=== PATIENT | female | born 1935 | race Caucasian/White ===

== ENCOUNTER 2017-05-10 20:48 | Emergency (ER) | payer MEDICARE, BC ==
[~2017-05-10] VITALS: Ht 162.6 cm; Wt 77.0 kg
[~2017-05-10 20:48] MED LIST: AMLODIPINE5 MG PO; ASPIRIN LOW DOS81 M2 PO; ATORVASTATIN CA20 MG PO; B-121000 MC1 PO; BRILINTA90 MG PO; CIPROFLOXACN500 MG PO; FLORASTOR250 M1 PO; FUROSEMIDE20 MG PO; FUROSEMIDE80 MG PO; IMODIUM2 MG PO; LASIX 20 MG TAB20 MG PO; LEVOTHYROXIN50 MCG PO; LIPITOR20 M1 PO; LISINOPRIL10 MG PO; LISINOPRIL20 MG PO; METFORMIN500 MG PO; METOPROL TAR25 MG PO; METRONIDAZOL500 MG PO; PANTOPRAZOLE SO40 MG PO; PLAVIX75 MG PO; VITAMIN B-12500 MCG PO
[2017-05-10] MEDS ORDERED: BUMEX1 M1 PO (21:04)
[2017-05-10] MEDS ORDERED: SPIRONOLACTONE25 MG PO (21:04)
[2017-05-10 22:34] LABS: HEMATOCRIT 24.1 % (37.0-47.0); HEMOGLOBIN 7.8 g/dl (12.0-16.0); IMMATURE GRANULOCYTES 0.3 % (0.0-1.0); MEAN CELL VOLUME 90.9 fL CALC (80.0-100.0); MEAN CORPUSCULAR HGB 29.4 pG CALC (26.0-32.0); MEAN CORPUSCULAR HGB CONC 32.4 g/L CALC (32.0-36.0); NEUT# 1.77 thou/uL (2.00-7.15); RED BLOOD COUNT 2.65 mill/uL (4.20-5.60); RED CELL DISTRI WIDTH 14.6 % (11.5-15.5)
[2017-05-10 22:47] LABS: ALBUMIN 3.5 g/dL (3.2-5.0); BILIRUBIN, TOTAL 1.1 mg/dL (0.0-1.4); CALCIUM 8.9 mg/dL (8.4-10.2); CREATININE 1.5 mg/dL (0.5-1.0); POTASSIUM 3.6 mmol/l (3.5-5.1); TOTAL PROTEIN 6.4 g/dL (6.3-8.2)
[2017-05-10 22:51] LABS: INTERNATIONAL NORMALIZED RATIO 1.1 RATIO (0.7-1.3); PROTHROMBIN TIME 12.1 SECONDS (9.0-12.5)
[2017-05-11 03:10] VITALS: BP 140/67
== END 2017-05-11 03:10 ==
LOC: ED 20:48 → ED-I 05-11 → ED 05-11 03:10
PROVIDERS: Emergency Medicine
DX: K92.2 Gastrointestinal hemorrhage, unspecified (principal); D64.9 Anemia, unspecified; N18.3 Chronic kidney disease, stage 3 (moderate); E11.9 Type 2 diabetes mellitus without complications; Z79.84 Long term (current) use of oral hypoglycemic drugs
CPT/HCPCS: J2354; S0164

== ENCOUNTER 2017-10-06 20:46 | Observation (INO) | payer MEDICARE, BC ==
[~2017-10-06] VITALS: Ht 160 cm; Wt 80.0 kg
[~2017-10-06 20:46] MED LIST changes: +BUMEX1 M1 PO; +SPIRONOLACTONE25 MG PO
[2017-10-06] MEDS ORDERED: FERROUS SUL1 XX (21:16)
[2017-10-06] MEDS ORDERED: B-12500 MC2 (21:17)
[2017-10-06 22:17] LABS: HEMATOCRIT 37.1 % (37.0-47.0); HEMOGLOBIN 12.7 g/dl (12.0-16.0); IMMATURE GRANULOCYTES 0.3 % (0.0-1.0); MEAN CELL VOLUME 101.1 fL CALC (80.0-100.0); MEAN CORPUSCULAR HGB 34.6 pG CALC (26.0-32.0); MEAN CORPUSCULAR HGB CONC 34.2 g/L CALC (32.0-36.0); NEUT# 5.98 thou/uL (2.00-7.15); RED BLOOD COUNT 3.67 mill/uL (4.20-5.60); RED CELL DISTRI WIDTH 13.3 % (11.5-15.5)
[2017-10-06 22:18] LABS: URINE BILIRUBIN - DIPSTICK NEGATIVE (NEGATIVE); URINE BLOOD DIPSTICK SMALL (NEGATIVE); URINE COLOR YELLOW; URINE GLUCOSE - DIPSTICK NEGATIVE (NEGATIVE); URINE KETONE NEGATIVE (NEGATIVE); URINE NITRITE - DIPSTICK NEGATIVE (Negative); URINE PH 5.5 (4.5-8.0); URINE PROTEIN - DIPSTICK TRACE mg/dL (NEG-TRACE); URINE SPECIFIC GRAVITY >=1.030; URINE UROBILINOGEN - DIPSTICK 0.2 E.U./dL (0.2)
[2017-10-06 22:19] LABS: URINE LEUK ESTERASE SMALL (NEGATIVE)
[2017-10-06 22:22] LABS: URINE CLARITY TURBID
[2017-10-06 22:26] LABS: URINE BACTERIA RARE hpf; URINE SQUAMOUS EPITHELIAL CELL FEW EPI/hpf (0-FEW)
[2017-10-06 22:39] LABS: ACT PARTIAL THROMBO TIME 27.5 SECONDS (20.0-32.5); INTERNATIONAL NORMALIZED RATIO 1.1 RATIO (0.7-1.3); PROTHROMBIN TIME 12.7 SECONDS (9.0-12.5)
[2017-10-06 22:45] LABS: ALBUMIN 3.8 g/dL (3.2-5.0); BILIRUBIN, TOTAL 2.9 mg/dL (0.0-1.4); CALCIUM 10.1 mg/dL (8.4-10.2); CREATININE 1.3 mg/dL (0.5-1.0); TOTAL PROTEIN 6.7 g/dL (6.3-8.2)
[2017-10-07 01:50] VITALS: BP 118/53
[2017-10-07 07:57] VITALS: BP 121/60
[2017-10-07 11:41] VITALS: BP 122/53
[2017-10-07] MEDS ORDERED: KEFLEX500 MG PO (13:01)
[2017-10-07 15:23] VITALS: BP 143/54
== END 2017-10-07 16:10 | disposition home or self-care (01) ==
LOC: ED 20:46 → ED-I 23:59 → ED 10-07 00:56 → MS2 10-07 00:57
PROVIDERS: Emergency Medicine; ADMIT Internal Medicine; ATTEND Internal Medicine
DX: R10.13 Epigastric pain (principal); R11.0 Nausea; N39.0 Urinary tract infection, site not specified; I12.9 Hypertensive chronic kidney disease with stage 1 through stage 4 chronic kidney disease, or unspecified chronic kidney disease; E11.22 Type 2 diabetes mellitus with diabetic chronic kidney disease; N18.3 Chronic kidney disease, stage 3 (moderate); E03.9 Hypothyroidism, unspecified; K21.9 Gastro-esophageal reflux disease without esophagitis; M19.90 Unspecified osteoarthritis, unspecified site; I25.10 Atherosclerotic heart disease of native coronary artery without angina pectoris; I25.2 Old myocardial infarction; Z95.5 Presence of coronary angioplasty implant and graft; R07.9 Chest pain, unspecified

== ENCOUNTER 2017-10-12 02:23 | Emergency (ER) | payer MEDICARE, BC ==
[~2017-10-12] VITALS: Ht 160 cm; Wt 80.8 kg
[~2017-10-12 02:23] MED LIST changes: +B-12500 MC2; +FERROUS SUL1 XX; +KEFLEX500 MG PO
[2017-10-12] MEDS ORDERED: FERROUS FUM324 MG PO (03:42)
[2017-10-12 03:50] LABS: HEMATOCRIT 34.6 % (37.0-47.0); HEMOGLOBIN 12.5 g/dl (12.0-16.0); IMMATURE GRANULOCYTES 0.3 % (0.0-1.0); MEAN CELL VOLUME 97.5 fL CALC (80.0-100.0); MEAN CORPUSCULAR HGB 35.2 pG CALC (26.0-32.0); MEAN CORPUSCULAR HGB CONC 36.1 g/L CALC (32.0-36.0); NEUT# 5.47 thou/uL (2.00-7.15); RED BLOOD COUNT 3.55 mill/uL (4.20-5.60); RED CELL DISTRI WIDTH 12.8 % (11.5-15.5)
[2017-10-12 03:57] LABS: ALBUMIN 3.4 g/dL (3.2-5.0); BILIRUBIN, TOTAL 3.6 mg/dL (0.0-1.4); CREATININE 1.2 mg/dL (0.5-1.0); POTASSIUM 4.1 mmol/l (3.5-5.1); TOTAL PROTEIN 6.1 g/dL (6.3-8.2)
[2017-10-12 06:38] VITALS: BP 158/72
== END 2017-10-12 06:39 | disposition short-term general hospital (02) ==
LOC: ED 02:23
PROVIDERS: Emergency Medicine
DX: R10.13 Epigastric pain (principal); K85.90 Acute pancreatitis without necrosis or infection, unspecified; K80.10 Calculus of gallbladder with chronic cholecystitis without obstruction; R10.33 Periumbilical pain; R11.2 Nausea with vomiting, unspecified; R50.9 Fever, unspecified; I12.9 Hypertensive chronic kidney disease with stage 1 through stage 4 chronic kidney disease, or unspecified chronic kidney disease; N18.3 Chronic kidney disease, stage 3 (moderate)
CPT/HCPCS: S0164

== ENCOUNTER 2018-07-30 11:32 | Emergency (ER) | payer MEDICARE, BC ==
[~2018-07-30] VITALS: Ht 160 cm; Wt 81.8 kg
[~2018-07-30 11:32] MED LIST changes: +FERROUS FUM324 MG PO
[2018-07-30 11:35] VITALS: BP 198/84
[2018-07-30] MEDS ORDERED: LOSARTAN POT25 MG PO (13:23)
[2018-07-30] MEDS ORDERED: ASPIRIN81 MG PO (13:24)
== END 2018-07-30 13:45 ==
LOC: ED 11:32
DX: S72.142A Displaced intertrochanteric fracture of left femur, initial encounter for closed fracture (principal); I12.9 Hypertensive chronic kidney disease with stage 1 through stage 4 chronic kidney disease, or unspecified chronic kidney disease; E11.22 Type 2 diabetes mellitus with diabetic chronic kidney disease; N18.3 Chronic kidney disease, stage 3 (moderate); E03.9 Hypothyroidism, unspecified; I25.10 Atherosclerotic heart disease of native coronary artery without angina pectoris; W01.0XXA Fall on same level from slipping, tripping and stumbling without subsequent striking against object, initial encounter; Y92.232 Corridor of hospital as the place of occurrence of the external cause; Z95.5 Presence of coronary angioplasty implant and graft

== ENCOUNTER 2018-08-09 08:14 | Inpatient (IN) | payer MEDICARE, BC ==
[~2018-08-09] VITALS: Ht 160 cm; Wt 77.7 kg
[2018-08-09] VITALS (16 sets, daily range): BP systolic 93–119; BP diastolic 41–72
[~2018-08-09 08:14] MED LIST changes: +ASPIRIN81 MG PO; -B-12500 MC2; +B-12500 MC2 PO; +LOSARTAN POT25 MG PO
[2018-08-09 08:59] LABS: HEMATOCRIT 25.8 % (37.0-47.0); HEMOGLOBIN 8.7 g/dl (12.0-16.0); IMMATURE GRANULOCYTES 0.6 % (0.0-5.0); MEAN CELL VOLUME 105.3 fL CALC (80.0-100.0); MEAN CORPUSCULAR HGB 35.5 pG CALC (26.0-32.0); MEAN CORPUSCULAR HGB CONC 33.7 g/L CALC (32.0-36.0); NEUT# 14.14 thou/uL (2.00-7.15); RED BLOOD COUNT 2.45 mill/uL (4.20-5.60); RED CELL DISTRI WIDTH 18.5 % (11.5-15.5)
[2018-08-09 09:17] LABS: ALKALINE PHOSPHATASE 113 u/l (38-126); ANION GAP 12 (6-22 (CALC)); BILIRUBIN, TOTAL 7.3 mg/dL (0.0-1.4); BUN 25 mg/dL (8-23); BUN/CREATININE RATIO 16 (12-20 (CALC)); CARBON DIOXIDE 22 mmol/l (22-30); CHLORIDE 104 mmol/l (95-108); CREATININE 1.6 mg/dL (0.5-1.0); GFR 31 ML/MIN (>=60 (CALC)); GFR FOR AFR.AMER. 37 ML/MIN (>=60 (CALC)); POTASSIUM 4.5 mmol/l (3.5-5.1); SGOT/AST 41 u/l (9-36); SODIUM 133 mmol/l (137-146)
[2018-08-09 09:19] LABS: ALBUMIN 2.7 g/dL (3.2-5.0); TOTAL PROTEIN 5.5 g/dL (6.3-8.2)
[2018-08-09 09:29] LABS: MYOGLOBIN 80 ng/mL (0 - 62)
[2018-08-09 10:02] LABS: URINE BILIRUBIN - DIPSTICK NEGATIVE (NEGATIVE); URINE BLOOD DIPSTICK NEGATIVE (NEGATIVE); URINE GLUCOSE - DIPSTICK NEGATIVE (NEGATIVE); URINE KETONE NEGATIVE (NEGATIVE); URINE LEUK ESTERASE NEGATIVE (NEGATIVE); URINE NITRITE - DIPSTICK NEGATIVE (Negative); URINE PROTEIN - DIPSTICK NEGATIVE (NEG-TRACE); URINE SPECIFIC GRAVITY 1.025
[2018-08-09 10:04] LABS: URINE CLARITY CLEAR; URINE COLOR DK. YELLOW
[2018-08-09] MEDS ORDERED: PROCRIT 1010000 U/ML IJ (10:05)
[2018-08-09] MEDS ORDERED: COLACE100 MG PO (10:08)
[2018-08-10] VITALS (12 sets, daily range): BP systolic 91–154; BP diastolic 43–65
[2018-08-10 05:42] LABS: HEMATOCRIT 22.9 % (37.0-47.0); HEMOGLOBIN 7.7 g/dl (12.0-16.0); IMMATURE GRANULOCYTES 0.3 % (0.0-5.0); MEAN CELL VOLUME 107.5 fL CALC (80.0-100.0); MEAN CORPUSCULAR HGB 36.2 pG CALC (26.0-32.0); MEAN CORPUSCULAR HGB CONC 33.6 g/L CALC (32.0-36.0); NEUT# 9.81 thou/uL (2.00-7.15); RED BLOOD COUNT 2.13 mill/uL (4.20-5.60); RED CELL DISTRI WIDTH 18.6 % (11.5-15.5)
[2018-08-10 06:12] LABS: BILIRUBIN, TOTAL 4.4 mg/dL (0.0-1.4); CREATININE 1.8 mg/dL (0.5-1.0); MAGNESIUM 1.8 mg/dL (1.6-2.3); POTASSIUM 4.3 mmol/l (3.5-5.1); TOTAL PROTEIN 4.4 g/dL (6.3-8.2)
[2018-08-10 06:20] LABS: ALBUMIN 2.1 g/dL (3.2-5.0)
[2018-08-11] VITALS (18 sets, daily range): BP systolic 101–147; BP diastolic 43–67
[2018-08-11 06:37] LABS: HEMATOCRIT 20.5 % (37.0-47.0); IMMATURE GRANULOCYTES 0.8 % (0.0-5.0); MEAN CELL VOLUME 104.6 fL CALC (80.0-100.0); MEAN CORPUSCULAR HGB 35.7 pG CALC (26.0-32.0); MEAN CORPUSCULAR HGB CONC 34.1 g/L CALC (32.0-36.0); NEUT# 8.25 thou/uL (2.00-7.15); RED BLOOD COUNT 1.96 mill/uL (4.20-5.60); RED CELL DISTRI WIDTH 18.6 % (11.5-15.5)
[2018-08-11 06:46] LABS: ALBUMIN 2.2 g/dL (3.2-5.0); BILIRUBIN, TOTAL 3.2 mg/dL (0.0-1.4); CREATININE 1.8 mg/dL (0.5-1.0); POTASSIUM 3.9 mmol/l (3.5-5.1); TOTAL PROTEIN 4.5 g/dL (6.3-8.2)
[2018-08-11 07:30] LABS: MAGNESIUM 1.9 mg/dL (1.6-2.3)
[2018-08-12] VITALS (23 sets, daily range): BP systolic 112–159; BP diastolic 51–70
[2018-08-12 05:12] LABS: HEMATOCRIT 26.4 % (37.0-47.0); HEMOGLOBIN 8.9 g/dl (12.0-16.0); IMMATURE GRANULOCYTES 1.1 % (0.0-5.0); MEAN CELL VOLUME 98.5 fL CALC (80.0-100.0); MEAN CORPUSCULAR HGB 33.2 pG CALC (26.0-32.0); MEAN CORPUSCULAR HGB CONC 33.7 g/L CALC (32.0-36.0); NEUT# 7.32 thou/uL (2.00-7.15); RED BLOOD COUNT 2.68 mill/uL (4.20-5.60); RED CELL DISTRI WIDTH 19.9 % (11.5-15.5)
[2018-08-12 05:42] LABS: ALBUMIN 2.5 g/dL (3.2-5.0); BILIRUBIN, TOTAL 3.4 mg/dL (0.0-1.4); CREATININE 1.7 mg/dL (0.5-1.0); MAGNESIUM 1.8 mg/dL (1.6-2.3); POTASSIUM 3.3 mmol/l (3.5-5.1); TOTAL PROTEIN 4.7 g/dL (6.3-8.2)
[2018-08-13] VITALS (13 sets, daily range): BP systolic 133–169; BP diastolic 59–79
[2018-08-13 04:47] LABS: HEMOGLOBIN 9.4 g/dl (12.0-16.0); IMMATURE GRANULOCYTES 2.6 % (0.0-5.0); MEAN CELL VOLUME 98.6 fL CALC (80.0-100.0); MEAN CORPUSCULAR HGB 33.1 pG CALC (26.0-32.0); MEAN CORPUSCULAR HGB CONC 33.6 g/L CALC (32.0-36.0); NEUT# 4.7 thou/uL (2.00-7.15); RED BLOOD COUNT 2.84 mill/uL (4.20-5.60); RED CELL DISTRI WIDTH 19.8 % (11.5-15.5)
[2018-08-13 05:08] LABS: BILIRUBIN, TOTAL 3.3 mg/dL (0.0-1.4); CREATININE 1.5 mg/dL (0.5-1.0); MAGNESIUM 1.7 mg/dL (1.6-2.3); TOTAL PROTEIN 5.3 g/dL (6.3-8.2)
[2018-08-14] VITALS (18 sets, daily range): BP systolic 118–152; BP diastolic 51–89
[2018-08-14 06:14] LABS: HEMATOCRIT 29.7 % (37.0-47.0); HEMOGLOBIN 10.1 g/dl (12.0-16.0); IMMATURE GRANULOCYTES 5.2 % (0.0-5.0); MEAN CELL VOLUME 99.3 fL CALC (80.0-100.0); MEAN CORPUSCULAR HGB 33.8 pG CALC (26.0-32.0); PLATELET COUNT 95 thou/uL (130-400); RED BLOOD COUNT 2.99 mill/uL (4.20-5.60); RED CELL DISTRI WIDTH 19.4 % (11.5-15.5)
[2018-08-14 06:33] LABS: ALBUMIN 3.1 g/dL (3.2-5.0); CREATININE 1.5 mg/dL (0.5-1.0); POTASSIUM 2.7 mmol/l (3.5-5.1)
[2018-08-14 06:57] LABS: BAND 1 % (0-8); MANUAL DIFFERENTIAL YES
[2018-08-15] VITALS (14 sets, daily range): BP systolic 126–173; BP diastolic 49–78
[2018-08-15 05:34] LABS: HEMATOCRIT 33.9 % (37.0-47.0); HEMOGLOBIN 11.3 g/dl (12.0-16.0); IMMATURE GRANULOCYTES 5.7 % (0.0-5.0); MEAN CELL VOLUME 101.5 fL CALC (80.0-100.0); MEAN CORPUSCULAR HGB 33.8 pG CALC (26.0-32.0); MEAN CORPUSCULAR HGB CONC 33.3 g/L CALC (32.0-36.0); PLATELET COUNT 123 thou/uL (130-400); RED BLOOD COUNT 3.34 mill/uL (4.20-5.60); RED CELL DISTRI WIDTH 20.5 % (11.5-15.5)
[2018-08-15 05:55] LABS: ALBUMIN 3.4 g/dL (3.2-5.0); CREATININE 1.7 mg/dL (0.5-1.0); MAGNESIUM 1.8 mg/dL (1.6-2.3); TOTAL PROTEIN 5.9 g/dL (6.3-8.2)
[2018-08-15 05:59] LABS: BAND 2 % (0-8); MANUAL DIFFERENTIAL YES
[2018-08-15 06:04] LABS: POTASSIUM 3.9 mmol/l (3.5-5.1)
[2018-08-16] VITALS (7 sets, daily range): BP systolic 110–142; BP diastolic 53–85
[2018-08-16 06:22] LABS: HEMATOCRIT 34.2 % (37.0-47.0); HEMOGLOBIN 11.1 g/dl (12.0-16.0); IMMATURE GRANULOCYTES 2.6 % (0.0-5.0); MEAN CELL VOLUME 104.6 fL CALC (80.0-100.0); MEAN CORPUSCULAR HGB 33.9 pG CALC (26.0-32.0); MEAN CORPUSCULAR HGB CONC 32.5 g/L CALC (32.0-36.0); NEUT# 7.42 thou/uL (2.00-7.15); RED BLOOD COUNT 3.27 mill/uL (4.20-5.60); RED CELL DISTRI WIDTH 20.4 % (11.5-15.5)
[2018-08-16 06:39] LABS: ALBUMIN 3.2 g/dL (3.2-5.0); BILIRUBIN, TOTAL 4.7 mg/dL (0.0-1.4); CREATININE 1.7 mg/dL (0.5-1.0); TOTAL PROTEIN 5.6 g/dL (6.3-8.2)
[2018-08-17] VITALS (7 sets, daily range): BP systolic 95–133; BP diastolic 50–82
[2018-08-17 05:11] LABS: HEMOGLOBIN 10.7 g/dl (12.0-16.0); MEAN CELL VOLUME 107.9 fL CALC (80.0-100.0); MEAN CORPUSCULAR HGB CONC 31.5 g/L CALC (32.0-36.0); RED BLOOD COUNT 3.15 mill/uL (4.20-5.60); RED CELL DISTRI WIDTH 20.2 % (11.5-15.5)
[2018-08-17 05:22] LABS: CREATININE 1.4 mg/dL (0.5-1.0); MAGNESIUM 1.9 mg/dL (1.6-2.3); POTASSIUM 3.6 mmol/l (3.5-5.1)
[2018-08-18 04:05] VITALS: BP 120/64
[2018-08-18 06:12] LABS: CREATININE 1.6 mg/dL (0.5-1.0); POTASSIUM 3.1 mmol/l (3.5-5.1)
[2018-08-18 06:54] LABS: HEMATOCRIT 36.2 % (37.0-47.0); HEMOGLOBIN 11.8 g/dl (12.0-16.0); MEAN CELL VOLUME 105.8 fL CALC (80.0-100.0); MEAN CORPUSCULAR HGB 34.5 pG CALC (26.0-32.0); MEAN CORPUSCULAR HGB CONC 32.6 g/L CALC (32.0-36.0); RED BLOOD COUNT 3.42 mill/uL (4.20-5.60); RED CELL DISTRI WIDTH 19.4 % (11.5-15.5)
[2018-08-18 07:50] VITALS: BP 133/58
[2018-08-18 11:24] VITALS: BP 116/70
[2018-08-18 15:44] VITALS: BP 110/50
[2018-08-18 19:30] VITALS: BP 100/50
[2018-08-19] VITALS (7 sets, daily range): BP systolic 110–142; BP diastolic 45–63
[2018-08-19 05:48] LABS: CREATININE 1.6 mg/dL (0.5-1.0); POTASSIUM 3.4 mmol/l (3.5-5.1)
[2018-08-19 05:50] LABS: ALBUMIN 2.5 g/dL (3.2-5.0)
[2018-08-19 12:58] LABS: URINE BILIRUBIN - DIPSTICK NEGATIVE (NEGATIVE); URINE BLOOD DIPSTICK NEGATIVE (NEGATIVE); URINE COLOR YELLOW; URINE GLUCOSE - DIPSTICK NEGATIVE (NEGATIVE); URINE KETONE NEGATIVE (NEGATIVE); URINE LEUK ESTERASE NEGATIVE (Negative); URINE NITRITE - DIPSTICK NEGATIVE (Negative); URINE PROTEIN - DIPSTICK NEGATIVE (NEG-TRACE); URINE SPECIFIC GRAVITY 1.015
[2018-08-19 13:09] LABS: URINE CLARITY CLEAR
[2018-08-20 04:00] VITALS: BP 141/72
[2018-08-20 05:56] LABS: ALBUMIN 2.5 g/dL (3.2-5.0); BUN 60 mg/dL (8-23); CARBON DIOXIDE 32 mmol/l (22-30); CHLORIDE 101 mmol/l (95-108); CREATININE 1.4 mg/dL (0.5-1.0); GFR 36 ML/MIN (>=60 (CALC)); GFR FOR AFR.AMER. 44 ML/MIN (>=60 (CALC)); POTASSIUM 3.5 mmol/l (3.5-5.1); SODIUM 139 mmol/l (137-146)
[2018-08-20 07:51] VITALS: BP 126/56
[2018-08-20 11:34] VITALS: BP 115/56
[2018-08-20 16:08] VITALS: BP 140/70
[2018-08-20 19:00] VITALS: BP 118/65
[2018-08-21 04:30] VITALS: BP 115/56
[2018-08-21 07:39] VITALS: BP 135/52
[2018-08-21 10:42] VITALS: BP 125/60
[2018-08-21 15:44] VITALS: BP 123/56
[2018-08-21 19:00] VITALS: BP 119/61
[2018-08-22 03:58] VITALS: BP 116/62
[2018-08-22 07:31] VITALS: BP 100/55
[2018-08-22 11:14] VITALS: BP 127/62
[2018-08-22] MEDS ORDERED: BUMETANIDE1 MG PO (13:02)
[2018-08-22] MEDS ORDERED: VITAMIN D2000 UNI2 PO (13:03)
[2018-08-22] MEDS ORDERED: LACTULOSE10 GM/15 M PO (13:05)
[2018-08-22 15:24] VITALS: BP 136/61
== END 2018-08-22 17:06 | DRG 291 ==
LOC: ED 08:14 → ED-I 09:28 → ED 09:41 → ICU 09:42 → MS2 08-15 14:35
PROVIDERS: Emergency Medicine; Internal Medicine; Internal Medicine Nephrology; ADMIT Internal Medicine Nephrology; ATTEND Internal Medicine Nephrology
PROC: 0T9B70Z Drainage of Bladder with Drainage Device, Via Natural or Artificial Opening (ICD-10-PCS; 2018-08-09)
PROC: 02HV33Z Insertion of Infusion Device into Superior Vena Cava, Percutaneous Approach (ICD-10-PCS; 2018-08-09)
PROC: 4A02X4A Measurement of Cardiac Electrical Activity, Guidance, External Approach (ICD-10-PCS; 2018-08-09)
PROC: 30233N1 Transfusion of Nonautologous Red Blood Cells into Peripheral Vein, Percutaneous Approach (ICD-10-PCS; principal; 2018-08-11)
PROC: 30233N1 Transfusion of Nonautologous Red Blood Cells into Peripheral Vein, Percutaneous Approach (ICD-10-PCS; 2018-08-11)
DX: I13.0 Hypertensive heart and chronic kidney disease with heart failure and stage 1 through stage 4 chronic kidney disease, or unspecified chronic kidney disease (principal); J18.9 Pneumonia, unspecified organism; J96.01 Acute respiratory failure with hypoxia; G92 Toxic encephalopathy; I50.33 Acute on chronic diastolic (congestive) heart failure; E87.4 Mixed disorder of acid-base balance; N17.9 Acute kidney failure, unspecified; T81.41XA Infection following a procedure, superficial incisional surgical site, initial encounter; E87.1 Hypo-osmolality and hyponatremia; N25.81 Secondary hyperparathyroidism of renal origin; L76.32 Postprocedural hematoma of skin and subcutaneous tissue following other procedure; N39.0 Urinary tract infection, site not specified; E87.3 Alkalosis; E11.22 Type 2 diabetes mellitus with diabetic chronic kidney disease; N18.3 Chronic kidney disease, stage 3 (moderate); E03.9 Hypothyroidism, unspecified; I25.10 Atherosclerotic heart disease of native coronary artery without angina pectoris; E78.5 Hyperlipidemia, unspecified; K21.9 Gastro-esophageal reflux disease without esophagitis; I95.9 Hypotension, unspecified; E87.6 Hypokalemia; D69.6 Thrombocytopenia, unspecified; K59.00 Constipation, unspecified; M19.90 Unspecified osteoarthritis, unspecified site; H91.90 Unspecified hearing loss, unspecified ear; D63.1 Anemia in chronic kidney disease; T42.4X5A Adverse effect of benzodiazepines, initial encounter; B95.62 Methicillin resistant Staphylococcus aureus infection as the cause of diseases classified elsewhere; B96.20 Unspecified Escherichia coli [E. coli] as the cause of diseases classified elsewhere; S72.92XD Unspecified fracture of left femur, subsequent encounter for closed fracture with routine healing; X58.XXXD Exposure to other specified factors, subsequent encounter; Y95 Nosocomial condition; Y83.1 Surgical operation with implant of artificial internal device as the cause of abnormal reaction of the patient, or of later complication, without mention of misadventure at the time of the procedure; Z95.5 Presence of coronary angioplasty implant and graft; Z16.12 Extended spectrum beta lactamase (ESBL) resistance
CPT/HCPCS: J0885; J1650; J2060; J3370; P9016; P9047

== ENCOUNTER 2018-09-16 13:41 | Inpatient (IN) | payer MEDICARE, BC ==
[~2018-09-16] VITALS: Ht 160 cm; Wt 81.6 kg
[~2018-09-16 13:41] MED LIST changes: +BUMETANIDE1 MG PO; +COLACE100 MG PO; +LACTULOSE10 GM/15 M PO; +PROCRIT 1010000 U/ML IJ; +VITAMIN D2000 UNI2 PO
--- NOTE | 2018-09-16 13:55 | NUR ---
PT AWAITING ROOM ASSIGNMENT IN TRIAGE ROOM WITH SALES FACILITATOR.
[2018-09-16] MEDS ORDERED: DOXYCYCL HYC100 MG PO (14:21)
[2018-09-16] MEDS ORDERED: LORTAB 5/3255 MG PO (14:22)
[2018-09-16] MEDS ORDERED: TRAMADOL HCL50 MG PO (14:23)
--- NOTE | 2018-09-16 14:30 | NUR ---
Pt to room # 12 via W/C. Staff assist x's 2 to stretcher.
[2018-09-16 15:28] LABS: HEMOGLOBIN 9.6 g/dl (12.0-16.0); IMMATURE GRANULOCYTES 0.7 % (0.0-5.0); MEAN CELL VOLUME 98.9 fL CALC (80.0-100.0); MEAN CORPUSCULAR HGB 33.9 pG CALC (26.0-32.0); MEAN CORPUSCULAR HGB CONC 34.3 g/L CALC (32.0-36.0); NEUT# 8.41 thou/uL (2.00-7.15); RED BLOOD COUNT 2.83 mill/uL (4.20-5.60); RED CELL DISTRI WIDTH 16.8 % (11.5-15.5)
[2018-09-16 15:44] LABS: ALBUMIN 2.6 g/dL (3.2-5.0); BILIRUBIN, TOTAL 3.1 mg/dL (0.0-1.4); CREATININE 1.6 mg/dL (0.5-1.0); TOTAL PROTEIN 5.4 g/dL (6.3-8.2)
[2018-09-16 15:49] LABS: POTASSIUM 6.2 mmol/l (3.5-5.1)
--- NOTE | 2018-09-16 15:49 | NUR ---
KEY WORKER REPORTED TO CRITICAL POTASSIUM OF 6.1
--- NOTE | 2018-09-16 17:03 | NUR ---
PT WAS DIFFICULT STICK, NOW WITH 20G TO RIGHT SHOULDER AREA. IVF RUNS WITHOUT ISSUE, MEDS GIVEN IN TUBING. PT ABLE TO DRINK KAEXELATE ORDERED.
--- NOTE | 2018-09-16 18:30 | NUR ---
PT TAKEN TO ROOM 271 WITHOUT INCIDENT. WOUND VAC IN PLACE TO LEFT HIP. ACCOMPANYING.
[2018-09-16 18:40] VITALS: BP 151/60
--- NOTE | 2018-09-16 18:45 | NUR ---
PT. ARRIVED TO THE FLOOR VIA STRETCHER ACCOMPANIED BY ER NURSECRISTIANO. TRANSFERRED OVER TO BED WITH 4 STAFF MEMBERS; IN AT BEDSIDE; BLOCK INSPECTOR IN TO OBTAIN VS; PT. CAME IN WITH WOUND VAC TO LEFT HIP. CALL LIGHT IS IN REACH.
--- NOTE | 2018-09-16 20:00 | NUR ---
PT IN ROON WITH EYES OPEN. A/O X2 WITH SOME CONFUSION. EYES PERRLA. LUNGS CTA. ANDOME DISTENTED AND FIRM. PULSES PRESENT IN ALL EXTREM. PT HAS LEFT LEG WOUND VAC ATTACHED TO THIGH AREA. PT HAS BRUISING TO HER LEFT LOWER LEG UNDER THE KNEE, AND SCAB IN HER LEFT BUTTUCKS PT ISHOS. TOOK HEARING AIDS HOME. PT USES WHEELCHAIR. PT C/OPAIN/ PT MEDICATED PER MD ORDERS. IV PATENT.PT IS 2 PERSON ASSIST. PT SINUS RHYTHM ON TELEMONITOR,PT ON DIABETIC DIET. MEDS TOLERATED WELL.POC DISCUSSED. PT AND PLEASANTLY CONFUSED. WILL REINFORCE INFORMATION. NO OTHER CONCERNS.BED IN LOWEST POSITTION, CALLL LIGHTIN REACH WILL CONTINUE TO MONITOR.
--- NOTE | 2018-09-16 20:15 | NUR ---
DR RUCKER CALLED FOR ORDERS ON WOUND VAC AND TO START HOME MEDICATION. STATED HE WILL LOOK AT ONCE HE FINISHES DINNER.ORDERS ORDERS INITIATED FROM PAIN AND HYPERTENTION.
[2018-09-17] VITALS (7 sets, daily range): BP systolic 114–152; BP diastolic 50–67
--- NOTE | 2018-09-17 07:16 | NUR ---
RPORT RECEIVED FROM MARCO LOCO; PT LAYING IN BED HOB ELEVATED; RESP EVEN AND UNLABORED; CALL BURCH IN REACH; VIANEY CONTINUE TO MONITOR.
--- NOTE | 2018-09-17 07:22 | NUR ---
PT BS WAS 83. PT GIVEN ORANGE JUICE. RECHECKED BS WAS 112.WILL CONTINUE TO MONITOR.
--- NOTE | 2018-09-17 07:25 | NUR ---
REPORT RECEIVED FROM [facility]; PT LAYING IN BED, HOB ELEVATED; A/O X3; RESP EVEN AND UNLBORED ON R/A; TELE IN PLACE; ABD DISTENDED, SOFT; IV TO R SHOULDER PATENT; NS @ 50CC HR; EDEMA NOTED TO BILAT LE; WOUND VAC IN PLACE ON L HIP; SAFETY PRECATION REINFORCE; CALL BURCH IN REACH.
[2018-09-17 09:57] LABS: CREATININE 1.4 mg/dL (0.5-1.0)
[2018-09-17 09:58] LABS: MAGNESIUM 1.4 mg/dL (1.6-2.3); POTASSIUM 5.3 mmol/l (3.5-5.1)
[2018-09-17 10:09] LABS: HEMATOCRIT 26.6 % (37.0-47.0); HEMOGLOBIN 9.1 g/dl (12.0-16.0); IMMATURE GRANULOCYTES 0.7 % (0.0-5.0); MEAN CELL VOLUME 100.4 fL CALC (80.0-100.0); MEAN CORPUSCULAR HGB 34.3 pG CALC (26.0-32.0); MEAN CORPUSCULAR HGB CONC 34.2 g/L CALC (32.0-36.0); NEUT# 7.51 thou/uL (2.00-7.15); RED BLOOD COUNT 2.65 mill/uL (4.20-5.60); RED CELL DISTRI WIDTH 16.7 % (11.5-15.5)
--- NOTE | 2018-09-17 10:42 | NUR ---
SPOKE WITH PATIENT. PATIENT REPORTED HAVING NO KNOWN ALLERGIES, BUT WAS UNSURE ABOUT MOST OF HER HOME MEDICATIONS. ADVISED PATIENT TO REQUEST PHARMACY IF SHE HAS ANY OTHER QUESTIONS ABOUT HER MEDICATIONS
--- NOTE | 2018-09-17 12:56 | NUR ---
DR JORGENSEN AT BEDSIDE; ORDER IVF STOPPED; AND CALLE INSERTION; PT WAS EDUCATED ON IVF AND CALLE CATHETER; SAFETY PRECAUTION REINFORCE;
--- NOTE | 2018-09-17 13:00 | NUR ---
DR JORGENSEN ORDER A CALLE CATHETER; #16 F CALLE CATHETER INSERTED USING STERILE TECHINQUE; NO REISITANCE NOTED; CLEAR YELLOW URINE FLOWING TO GRAVITY. PT HAD MILD DISCOMFORT; STAT LOCK IN PLACE TO R INNER THIGH; CATHETER TUBING LABELED; WOUND VAC DRESSING & CANISTER REPLACED; MOD AMT OF SANGUINEOUS DRAINAGE NOTED TO OLD CANISTER; NO LEAKAGE NOTED; PT MEDIATED BEFORE PROCEDURE WITH LORTAB; CALL BURCH IN REACH WILL CONTINUE TO MONITOR.
[2018-09-17 14:48] LABS: URINE BILIRUBIN - DIPSTICK NEGATIVE (NEGATIVE); URINE BLOOD DIPSTICK NEGATIVE (NEGATIVE); URINE COLOR YELLOW; URINE GLUCOSE - DIPSTICK NEGATIVE (NEGATIVE); URINE KETONE NEGATIVE (NEGATIVE); URINE LEUK ESTERASE NEGATIVE (NEGATIVE); URINE NITRITE - DIPSTICK NEGATIVE (Negative); URINE PH 6.5 (4.5-8.0); URINE PROTEIN - DIPSTICK NEGATIVE (NEG-TRACE)
--- NOTE | 2018-09-17 16:29 | NUR ---
PT LAYING IN BED HOB ELEVATED; EYES CLOSED; CALLE PATENT DRAINING TO GRAVITY; CLEAR, YELLOW URINE; WOUND VAC PATENT; IV SITE APPEARS HEALTHY; RESP EVEN AND UNLABORE; CALL BURCH IN REACH.
--- NOTE | 2018-09-17 17:59 | NUR ---
PT SITTING UP IN BED EATING SUPPER, SPOUSE AT BEDSIDE; CALLE DRAINING TO GRAVITY; WOUND VAC INTACT; CALL BURCH IN REACH; PT VOICE NO COMPLAINS;
--- NOTE | 2018-09-17 21:00 | NUR ---
PT RESTING IN BED WITH EYES CLOSED. PT HAS FROZEN PLASMA GOING ATH THIS TIME. INFUSING WELL, NO DISTRESS NOTED. ASSESMENT COMPLETED AT THIS TIME(SEE INTERVENTION) LUNG SOUNDS CLEAR, HR REGULAR, BOWEL SOUNDS ACTIVE, SCANT EDEMA TO LEGS BILAT. IV FLUSHES WELL SCANT BRUSING TO AREA. PT C/O PAIN MEDICATED PER ORDER. PT REPOSITIONED IN BED. CALLE DRAINING TO GRAVITY CLEAR YELLOW URINE. WOUND VAC IN PLACE TO LEFT HIP. CALL BURCH IN REACH. WILL CONTINUE TO MONITOR.
--- NOTE | 2018-09-18 | NUR ---
PT APPEARS ASLEEP AT THIS TIME. NO S/S OF DISTRESS NOTED. CALLE DRAINING TO GRAVITY. CALL BURCH IN REACH. WILL CONTINUE TO MONITOR.
[2018-09-18 00:21] VITALS: BP 131/55
--- NOTE | 2018-09-18 04:00 | NUR ---
PT RESTING IN BED WITH EYES CLOSED. NO S/S OF DISTRESS. CALL BURCH IN REACH WILL CONTINUE TO MONITOR.
[2018-09-18 04:48] VITALS: BP 126/55
[2018-09-18 05:37] LABS: HEMATOCRIT 25.5 % (37.0-47.0); HEMOGLOBIN 8.6 g/dl (12.0-16.0); IMMATURE GRANULOCYTES 0.6 % (0.0-5.0); MEAN CELL VOLUME 100.8 fL CALC (80.0-100.0); MEAN CORPUSCULAR HGB CONC 33.7 g/L CALC (32.0-36.0); NEUT# 4.01 thou/uL (2.00-7.15); RED BLOOD COUNT 2.53 mill/uL (4.20-5.60); RED CELL DISTRI WIDTH 16.9 % (11.5-15.5)
[2018-09-18 06:04] LABS: ALBUMIN 2.1 g/dL (3.2-5.0); BILIRUBIN, TOTAL 2.5 mg/dL (0.0-1.4); CREATININE 1.3 mg/dL (0.5-1.0); MAGNESIUM 1.4 mg/dL (1.6-2.3); TOTAL PROTEIN 4.7 g/dL (6.3-8.2)
--- NOTE | 2018-09-18 07:10 | NUR ---
REPORT RECEIVED FROM REAGAN MORALES, PT LAYING IN BED AWAKE; CALLE PATENT, DARK BLOODY URINE NOTED IN CALLE, NO CLOTS NOTED; RESP EVEN AND UNLABRED; BED ALARM IN PLACE; CALL BURCH IN REACH;
--- NOTE | 2018-09-18 07:19 | NUR ---
REPORT RECEIVED FROM REAGAN MORALES; PT LAYING IN BED ASLEEP; RESP EVEN AND UNLABORED; ALVA PATENT; CALL BURCH IN REACH;
[2018-09-18 08:59] VITALS: BP 143/62
--- NOTE | 2018-09-18 09:00 | NUR ---
PT SITTING UP IN BED TENDING TO HER BILLS AND CHECK BOOK; SPOUSE AT BEDSIDE; RESP EVEN AND UNLABORED; TELE IN PLACE; IV TO R SHOULDER NOT FLUSHING, AREA RED; WOUND VAC TO LEFT HIP INTACT; SCANT PINKISH DRAINAGE TO TUBING NOTED; CALLE PATENT CLEAR YELLOW URINE; CALL BURCH IN REACH WILL CONTINUE TO MONITOR.
[2018-09-18 11:05] VITALS: BP 123/56
--- NOTE | 2018-09-18 11:16 | NUR ---
PT SITTING UP IN BED WORKING ON HER BILLS, SPOUSE AT BEDSIDE; RESP EVEN AND UNLABORED; TELE IN PLACE; CALLE DRAINING TO GRAVITY; PT VOICE NO CONCERNS;
--- NOTE | 2018-09-18 11:32 | NUR ---
PT RESTING IN BED WITH EYES CLOSED. RESPIRATIONS EVEN AND UNLABORED. WOUND VAC REMAINS IN PLACE FUNCTIONING PROPERLY. ALVA PATENT. CALL LIGHT WITHIN REACH. WILL CONTINUE TO MONITOR.
[2018-09-18 15:10] VITALS: BP 118/53
--- NOTE | 2018-09-18 16:05 | NUR ---
PT SITTING UP IN BED WATCHING TV; RESP EVEN AND UNLABORED; CALLE PATENT, CLEAR, YELLOW URINE; TELE IN PLACE; WOUND VAC SECURE TO L HIP; PAIGE, RN AT BEDSIDE STARTING A NEW IV; CALL BURCH IN REACH; PT VOICE NO CONCERNS;
[2018-09-18 19:00] VITALS: BP 127/61
--- NOTE | 2018-09-18 19:30 | NUR ---
REPORT FROM TYESHA KIRK. PT SITTING UP IN BED WATCHING TV. PT DENIES ANY PAIN OR DISCOMFORT. RESPIRATIONS EVEN AND UNLABORED. IV SITE APPEARS HEALTHY. ATHLETICS TEACHER IN PLACE. CALLE PATENT OUTPUT CLEAR YELLOW. WOUND VAC IN PLACE ORDERED NO DRAINAGE NOTED IN TUBING OR CANISTER AT THIS TIME. PT MASHPEE. DISCUSSED POC AND SAFETY PRECAUTIONS. PT VERBALIZED UNDERSTANDING. CALL LIGHT WITHIN REACH. WILL CONTINUE TO MONITOR.
[2018-09-19 04:00] VITALS: BP 147/62
--- NOTE | 2018-09-19 04:34 | NUR ---
PHLEBOTOMY IN ROOM TO OBTAIN LABS.
[2018-09-19 05:12] LABS: HEMOGLOBIN 9.4 g/dl (12.0-16.0); IMMATURE GRANULOCYTES 0.6 % (0.0-5.0); MEAN CELL VOLUME 102.6 fL CALC (80.0-100.0); MEAN CORPUSCULAR HGB 34.4 pG CALC (26.0-32.0); MEAN CORPUSCULAR HGB CONC 33.6 g/L CALC (32.0-36.0); NEUT# 4.18 thou/uL (2.00-7.15); RED BLOOD COUNT 2.73 mill/uL (4.20-5.60); RED CELL DISTRI WIDTH 17.2 % (11.5-15.5)
[2018-09-19 05:36] LABS: ALBUMIN 2.1 g/dL (3.2-5.0); BILIRUBIN, TOTAL 2.6 mg/dL (0.0-1.4); CREATININE 1.2 mg/dL (0.5-1.0); MAGNESIUM 1.4 mg/dL (1.6-2.3); POTASSIUM 4.9 mmol/l (3.5-5.1); TOTAL PROTEIN 4.8 g/dL (6.3-8.2)
--- NOTE | 2018-09-19 07:00 | NUR ---
REPORT RECEVIED FROM BRENDAN. PT IS SLEEPING IN BED WITH NO S/S OF DISTRESS NOTED. CALL LIGHT IN REACH.
--- NOTE | 2018-09-19 08:30 | NUR ---
ASSESSMENT DONE. RESPS EVEN AND UNLABORED. PT IS A&O X3. PT DENIES PAIN AT THIS TIME. CALLE IS PATENT WITH YELLOW URINE. WOUND VAC IN PLACE AT SUCTION 125. TELE IN PLACE. SAFETY PRECAUTIONS REINFORCED AND CALL LIGHT IN REACH.
[2018-09-19 08:52] VITALS: BP 137/63
[2018-09-19 10:57] VITALS: BP 140/58
--- NOTE | 2018-09-19 12:00 | NUR ---
PT IS NPO FOR HER ULTRASOUND. PT IS RESTING IN BED WITH NO S/S OF DISTRESS NOTED. PT DENIES NEEDS AT THIS TIME. CALL LIGHT IN REACH.
[2018-09-19 15:00] VITALS: BP 139/62
--- NOTE | 2018-09-19 16:36 | NUR ---
PT IS RESTING IN BED WITH NO S/S OF DISTRESS NOTED. CALLE IS PATENT WITH YELLOW URINE. PT DENIES NEEDS AT THIS TIME. CALL LIGHT IN REACH.
[2018-09-19 20:00] VITALS: BP 134/71
--- NOTE | 2018-09-19 20:10 | NUR ---
ASSESSMENT IS COMPLETED: IV SITE IS FREE FROM REDNESS OR EDEMA. HR IS REG,PULSES ARE STRONG X4, ABD IS SOFT WITH ACTIVE BS. BREATH SOUNDS ARE CLEAR,, BILATERALLY, NO C/O SOB, CALLE INTACT. WOUND VAC IN PLACE. CONTINUE TO OSBERVE AND MONITOR.
--- NOTE | 2018-09-20 | NUR ---
PT IS RELAXING IN BED WITH NO DISTRESS NOTED IV SITE IS FREE FROM REDNESS OR EDEMA. CONTINUE TO OBSERVE AND MONITOR.
[2018-09-20 00:29] VITALS: BP 119/62
--- NOTE | 2018-09-20 04:00 | NUR ---
PT IS RESTING WITH EYES CLOSED. NO DISTRESS NOTED. IV SITE IS FREE FROM REDNESS OR EDEMA. CALLE INTACT DRAINING YELLOW URINE. WOUND VAC IS DRAINING SCANT AMOUNT OF SERO DRAINAGE.
[2018-09-20 04:45] VITALS: BP 124/69
[2018-09-20 05:26] LABS: HEMATOCRIT 27.9 % (37.0-47.0); HEMOGLOBIN 9.5 g/dl (12.0-16.0); MEAN CELL VOLUME 99.6 fL CALC (80.0-100.0); MEAN CORPUSCULAR HGB 33.9 pG CALC (26.0-32.0); MEAN CORPUSCULAR HGB CONC 34.1 g/L CALC (32.0-36.0); RED BLOOD COUNT 2.8 mill/uL (4.20-5.60)
[2018-09-20 05:52] LABS: ANION GAP 12 (6-22 (CALC)); BUN 14 mg/dL (8-23); BUN/CREATININE RATIO 13 (12-20 (CALC)); CARBON DIOXIDE 25 mmol/l (22-30); CHLORIDE 96 mmol/l (95-108); GFR 53 ML/MIN (>=60 (CALC)); GFR FOR AFR.AMER. > 60 ML/MIN (>=60 (CALC)); POTASSIUM 4.8 mmol/l (3.5-5.1); SODIUM 129 mmol/l (137-146)
[2018-09-20 05:57] LABS: MAGNESIUM 1.9 mg/dL (1.6-2.3)
--- NOTE | 2018-09-20 07:03 | NUR ---
REPORT RECIVED FROM REAGAN LBACKMON; PT APPEARS TO BE SLEEPING WITH EYES CLOSED, HOB ELEVATED; RESP EVEN AND UNLABORED; WOUND VAN IN PLACE; CALL BURCH IN REACH.
[2018-09-20 07:55] VITALS: BP 138/56
--- NOTE | 2018-09-20 09:28 | NUR ---
PT LAYING IN BED WATCHING TV; AT BEDSIDE; AM MEDS ADMINISTERED; IV FLUSHED WITHOUT DIFFICULTY; CALLE PATENT CLEAR, TYRA URINE, EMPTIED 200CC ; WOUND VAN INTACT SUCTION AT 125; TELE IN PLACE; CALL BEL IN REACH; SAFETY PRECAUTION REINFORCE
[2018-09-20 11:19] VITALS: BP 141/67
--- NOTE | 2018-09-20 11:55 | NUR ---
ASSISTED PT X2 TO THE RECLINER; PT STOOD UP WITH STEADY GAIT; TOLERATED WELL; CALLE AND WOUND VAC INTACT; PT SET UP FOR LUNCH; CALL BURCH IN REACH.
--- NOTE | 2018-09-20 14:36 | NUR ---
ASSISTED PT BACK TO BED, X2 ASSIST; WOUND VAC DRESSING CHANGE; SCANT AMT OF SANGUINEOUS NOTED IN [place]; CANISTER DID NOT CHANGE; NO LEACKAGE NOTED; PT TOLERATED WELL; PT DID NOT REPORT ANY PAIN; CALL BURCH IN REACH; CALLE DRAINING TO GRAVITY CLEAR, TYRA URINE.
[2018-09-20 14:52] LABS: ALBUMIN 2.3 g/dL (3.2-5.0); BILIRUBIN, TOTAL 2.5 mg/dL (0.0-1.4); TOTAL PROTEIN 5.1 g/dL (6.3-8.2)
[2018-09-20 15:00] VITALS: BP 156/69
--- NOTE | 2018-09-20 19:30 | NUR ---
ASSESSMENT IS COMPLETD: IV SITE IS FREE FROM REDNESS OR EDEMA. HR IS REG, PULSES ARE STRONG X4, ABD IS SOFT WITH ACTIVE BS. BREATH SOUNDS ARE CLEAR, BILATERALLY. CALLE INTACT DRAINING YELLOW URINE. WOUND VAC IN PLACE MINIMAL AMOUNT OF DRAINAGE. CONTINUE TO OBSERVE AND MONITOR.
[2018-09-20 19:31] VITALS: BP 121/60
[2018-09-21] VITALS (7 sets, daily range): BP systolic 108–140; BP diastolic 52–69
--- NOTE | 2018-09-21 | NUR ---
pt is relaxing in bed with no distress noted. tele monitor keeps reading in 1 lead but artifact in the other leads attempts to change the electrodes and now changing the battery.
--- NOTE | 2018-09-21 04:00 | NUR ---
PT HAS BEEN RESTING IN BED WITH NO DISTRESS NOTED. IV SITE IS FREE FROM REDNESS OR EDEMA. TELE MONITOR HAS BEEN FIXED MANY TIMES SHOWING ARTIFACT IN ALL LEADS BUT 1 HAS A RHYTHM. CONTINUE TO OSBERVE AND MONITOR.
[2018-09-21 06:01] LABS: HEMATOCRIT 27.7 % (37.0-47.0); HEMOGLOBIN 9.7 g/dl (12.0-16.0); IMMATURE GRANULOCYTES 0.8 % (0.0-5.0); MEAN CELL VOLUME 98.9 fL CALC (80.0-100.0); MEAN CORPUSCULAR HGB 34.6 pG CALC (26.0-32.0); NEUT# 5.06 thou/uL (2.00-7.15); RED BLOOD COUNT 2.8 mill/uL (4.20-5.60); RED CELL DISTRI WIDTH 16.8 % (11.5-15.5)
[2018-09-21 06:19] LABS: ALBUMIN 2.1 g/dL (3.2-5.0); BILIRUBIN, TOTAL 2.2 mg/dL (0.0-1.4); CREATININE 1.1 mg/dL (0.5-1.0); MAGNESIUM 1.9 mg/dL (1.6-2.3); POTASSIUM 4.9 mmol/l (3.5-5.1); TOTAL PROTEIN 4.9 g/dL (6.3-8.2)
--- NOTE | 2018-09-21 07:05 | NUR ---
REPORT RECEIVED FROM REAGAN BLACKMON;PT APPEARS TO BE SLEEPING IN SEMI FOWLERS POSITION;RESPIRATIONS EVEN AND UNLABORED ON RA;TELE MONITORING IN PLACE;NO S/S OF DISTRESS NOTED AT THIS TIME;FALL PRECAUTIONS IN PLACE WITH BED IN THE LOWEST POSITION AND CALL LIGHT IN REACH;WILL CONTINUE TO MONITOR
--- NOTE | 2018-09-21 08:40 | NUR ---
PT RESTING IN BED WITH SPOUSE AT BEDSIDE;PT ALERT AND ORIENTED X3;VS OBTAINED AND ASSESSMENT COMPLETED;PT DENIES ANY CURRENT PAIN AT THIS TIME,PAIN SCALE AND REPORTING EDUCATED;RESPIRATIONS EVEN AND UNLABORED ON RA,CLEAR/DIMINISHED LUNG SOUNDS NOTED;ABDOMEN DISTENDED/SOFT ON PALPATION AND ACTIVE IN ALL 4 QUADRANTS;WEAK PEDAL PULSES;WOUND VAC PATENT TO LEFT HIP SET TO 125 AT THIS TIME,NO DRAINAGE NOTED;CALLE CATHETER PATENT DRAINING CLEAR/YELLOW URINE TO GRAVITY,LEG STRAP IN PLACE;#24G TO RIGHT HAND AND #20G TO RIGHT UPPER ARM FLUSHED AND PATENT,SITES APPEAR HEALTHY;TELE MONITORING IN PLACE;ACCUCHECK 117, NO COVERAGE NEEDED AT THIS TIME;PT DENIES ANY ADDITIONAL NEEDS AND IS ENCOURAGED TO CALL FOR ASSISTANCE IF NEEDED;FALL PRECAUTIONS IN PLACE WITH CALL LIGHT IN REACH;WILL CONTINUE TO MONITOR
--- NOTE | 2018-09-21 10:05 | NUR ---
AT BEDSIDE DISCUSSING POC.
--- NOTE | 2018-09-21 12:00 | NUR ---
PT RESTING IN BED WITH SPOUSE AT BEDSIDE;RESPIRATIONS EVEN AND UNLABORED ON RA;PT DENIES ANY CURRENT PAIN OR NEEDS;WOUND VAC PATENT RUNNING CONTINUOUSLY AT 125MM/HG;ACCUCHECK 178, AND PT COVERED WITH SLIDING SCALE NOVOLOG PER ORDER;IV SITES PATENT;CALLE CATHETER CONTINUES TO DRAIN WITH EASE;FLUID RESTRICTION OF 1000ML PER 24HRS REINFORCED,PT AND SPOUSE VERBALIZE UNDERSTANDING;FALL PRECAUTIONS IN PLACE WITH CALL LIGHT IN REACH;WILL CONTINUE TO MONITOR
--- NOTE | 2018-09-21 12:30 | NUR ---
PT MEDICATED WITH MORPHINE 2MG IVP FOR LEFT HIP PAIN PRIOR TO TRANSFERRING FROM BED TO RECLINER,WILL CONTINUE TO MONITOR
--- NOTE | 2018-09-21 17:10 | NUR ---
PT RESTING IN BED WITH FAMILY AT BEDSIDE;RESPIRATIONS EVEN AND UNLABORED ON RA;PT DENIES ANY CURRENT PAIN OR NEEDS;ACCUCHECK 171,PT COVERED WITH 2 UNITS OF NOVOLOG PER ORDER;TEMP CURRENTLY 99.5, BLANKETS REMOVED AND AC LOWERED;WOUND VAC PATENT RUNNING CONTINUOUSLY 125MM/HG;CALLE CATHETER PATENT DRAINING TO GRAVITY;PT DENIES ANY ADDITIONAL NEEDS AT THIS TIME AND IS ENCOURAGED TO CALL FOR ASSISTANCE IF NEEDED;FALL PRECAUTIONS IN PLACE WITH CALL LIGHT IN REACH;WILL CONTINUE TO MONITOR
--- NOTE | 2018-09-21 20:10 | NUR ---
ASSESSMENT IS COMPLETED : IV SITE IS FREE FROM REDNESS OR EDEMA. HR IS REG,PULSES ARE STRONG X4, ABD IS SOFT WITH ACTIVE BS, BREATH SOUNDS ARE CLEAR AND DIMINISHED. CALLE DRAINING YELLOW URINE. WOUND VAC IN PLACE. CONTINUE TO OBSERVE AND MONITOR.
--- NOTE | 2018-09-22 00:50 | NUR ---
PT IS RESTING WITH EYES CLOSED. IV SITE IS FREE FROM REDNESS OR EDMEA.
[2018-09-22 04:00] VITALS: BP 114/46
--- NOTE | 2018-09-22 04:00 | NUR ---
PT IS RESTING IN BED WITH NO DISTRESS NOTED. IV SITE IS FREE FROM REDNESS OR EDEMA. CONTINUE TO OSBERVE AND MONITOR. WOUND VAC IN PLACE. CALLE IN PLACE
[2018-09-22 04:56] LABS: HEMATOCRIT 29.3 % (37.0-47.0); IMMATURE GRANULOCYTES 0.9 % (0.0-5.0); MEAN CORPUSCULAR HGB 34.1 pG CALC (26.0-32.0); MEAN CORPUSCULAR HGB CONC 34.1 g/L CALC (32.0-36.0); NEUT# 5.6 thou/uL (2.00-7.15); RED BLOOD COUNT 2.93 mill/uL (4.20-5.60); RED CELL DISTRI WIDTH 17.1 % (11.5-15.5)
[2018-09-22 05:14] LABS: ALBUMIN 2.1 g/dL (3.2-5.0); BILIRUBIN, TOTAL 2.5 mg/dL (0.0-1.4); CREATININE 1.1 mg/dL (0.5-1.0); MAGNESIUM 1.8 mg/dL (1.6-2.3); POTASSIUM 4.6 mmol/l (3.5-5.1); TOTAL PROTEIN 4.8 g/dL (6.3-8.2)
--- NOTE | 2018-09-22 07:00 | NUR ---
REPORT RECEIVED FROM REAGAN BLACKMON; PT LAYING IN BED, RESTAURANT CREW MEMBER AT BED SIDE GIVING PT A BATH;
[2018-09-22 08:43] VITALS: BP 126/64
--- NOTE | 2018-09-22 08:48 | NUR ---
PT SITTING UP IN BED WATCHING TV AND DOZZING OFF TO SLEEP; RESP EVEN AND UNLABORED; WOUND VAN IN PLACE; NO LEAKAGE NOTED; CALLE PATENT, DRAING TO GRAVITY CLEAR YELLOW URINE; LEG STRAP SECURE; DENIES ANY PAIN; PT WANTS TO KNOW WHEN SHE WILL BE GOING TO [place]; SPOUSE AT BEDSIDE; CALL BURCH IN REACH; SAFETY PRECATION REINFORCE;
--- NOTE | 2018-09-22 11:11 | NUR ---
PT ASSISTED TO RECLINER X2 ASSIST; MEDICATED WITH MORPHINE 5/10 PAIN SCALE; PT TOLERATED WELL; CALLE PATENT & WOUND VAC PATENT; CALL BURCH IN REACH;,
--- NOTE | 2018-09-22 13:55 | NUR ---
ASSISTED PT BACK TO BED FROM RECLINER; DRESSING CHANGE TO L HIP DONE; PICTURE TAKEN; WOUND VAC INTACK SUCTION @125; MINIMAL SANGUINEOUS DRAINAGE IN CANISTER; DID NOT REPLACE [place]; PT TOLERTED WELL; MOD LOOSE, BROWN STOOL; CALLE DRAING CLEAR, YELLOW URINE TO GRAVITY. CALL BURCH IN REACH; AT BEDSIDE;
[2018-09-22 15:10] VITALS: BP 117/64
--- NOTE | 2018-09-22 15:39 | NUR ---
PT LAYING IN BED AWAKE; REMAINS NPO; REQUESTING FOOD, EXPLANED NPO; PT AWARE OF BEING TRF TO [place] SOMETIME TODAY; WANTS TO KNOW WHAT TIME SHE WILL BE TRF; INFORM PT WAITING ON RIDE; WOUND VAC AND CANISTER CHANGED OUT, INTACT; PT COMPLAIN OF NO PAIN; AT BEDSIDE;
--- NOTE | 2018-09-22 15:43 | NUR ---
PT JAMISON BURCH, ENTERED ROOM PT STATES SHE WANTS PAIN MEDS 6/10 PAIN SCALE TO L HIP; MEDICATED WITH MORPHINE; WILL CONTINUE TO MONITOR.
--- NOTE | 2018-09-22 17:27 | NUR ---
ENTERED ROOM PT IRASEMA SAID HER LEGS HURT; ELEVATE LEGS ON A PILLOW AND READJUST PT IN BED; PT STATES "I WANT SUPPER EVEN IF I HAVE TO TEAR THIS TOWN UP" ENRIKE TRIMBLE AWARE; ATILIO STATES PT TO REMAIN NPO. GAVE PT ICE CHIPS; CALL BURCH IN REACH.
[2018-09-22 19:30] VITALS: BP 179/67
--- NOTE | 2018-09-22 19:45 | NUR ---
PT RESTING IN BED WITH NO DISTRESS NOTED. IV SITE IS FREE FROM REDNESS OR EDMEA. WOUND VAC IN PLACE AND CALLE IN PLACE.
--- NOTE | 2018-09-22 21:30 | NUR ---
PT IS RESTING IN BED WITH N O DISTRESS NOTED. IV SITE IS FREE FROM REDNESS OR EDEMA. HR IS REG, PULSES ARE STRONG X4, ABD IS SOFT WITH ACTIVE BS, BREATH SOUNDS ARE CLEAR, BILATERALLY. CALLE DRAINING YELLOW URINE. WOUND VAC IN PLACE. CONTINUE TO OBSERVE AND MONITOR.
[2018-09-22 22:21] VITALS: BP 179/67
--- NOTE | 2018-09-22 22:21 | NUR ---
GAVE REPORT TO YOLY RN AT [facility] IN TO TO TRANSPORT PT TO [facility]. ALL PAPERS GIVEN TO TRANSPORTER. INFORMED FAMILY RE: TRANSPORT AND WHAT ROOM. CONTINUE TO OBSERVE AND MONITOR.
== END 2018-09-22 22:30 | DRG 643 ==
LOC: ED 13:41 → ED-I 17:05 → ED 17:28 → MS2 17:29
PROVIDERS: Emergency Medicine; Internal Medicine Nephrology; Nurse Practitioner Family; ADMIT Internal Medicine; ATTEND Internal Medicine
PROC: 0T9B70Z Drainage of Bladder with Drainage Device, Via Natural or Artificial Opening (ICD-10-PCS; principal; 2018-09-17)
DX: E22.2 Syndrome of inappropriate secretion of antidiuretic hormone (principal); K83.1 Obstruction of bile duct; I13.0 Hypertensive heart and chronic kidney disease with heart failure and stage 1 through stage 4 chronic kidney disease, or unspecified chronic kidney disease; I50.32 Chronic diastolic (congestive) heart failure; E87.5 Hyperkalemia; E11.22 Type 2 diabetes mellitus with diabetic chronic kidney disease; N18.3 Chronic kidney disease, stage 3 (moderate); E03.9 Hypothyroidism, unspecified; I25.10 Atherosclerotic heart disease of native coronary artery without angina pectoris; K21.9 Gastro-esophageal reflux disease without esophagitis; R32 Unspecified urinary incontinence; E78.5 Hyperlipidemia, unspecified; E66.9 Obesity, unspecified; K59.09 Other constipation; H91.90 Unspecified hearing loss, unspecified ear; T46.5X5A Adverse effect of other antihypertensive drugs, initial encounter; T81.49XD Infection following a procedure, other surgical site, subsequent encounter; Y83.1 Surgical operation with implant of artificial internal device as the cause of abnormal reaction of the patient, or of later complication, without mention of misadventure at the time of the procedure; Z68.32 Body mass index [BMI] 32.0-32.9, adult; Z96.642 Presence of left artificial hip joint; Z95.5 Presence of coronary angioplasty implant and graft
CPT/HCPCS: G0378; J1650; J3475